=== PATIENT | female | born 1965 | race Caucasian/White ===

== ENCOUNTER 2025-01-13 09:07 | Outpatient (CLI) | payer OTHER, SELFPAY ==
--- NOTE | 2025-01-13 09:15 | MR_ITS ---
[address] [address] Phone:?[phone] Fax:?[phone] Referring Physician Information: Bill Kruger M.D. [id number] [facility] [address] Phone:?[phone] Fax:?[phone] Patient:Rick Duarte D.O.B:?1965 Sex:?Female Phone:?[phone] [facility] MRN:?[id number] Exam Date:?01/13/2025 EXAM: MRI EXAMINATION OF THE RIGHT KNEE CLINICAL INFORMATION: Right knee pain. No history of surgery to this area. Concern for lateral meniscus tear. TECHNICAL INFORMATION: Axial PD and T2 fat saturation. Sagittal PD and T2 fat saturation. Coronal PD, T2 and STIR images acquired. Correlation is made with a prior exam dated October 20, 2008. INTERPRETATION: Bones: Few subchondral cystic changes involving the patella. No occult fracture/stress reaction. No evidence for AVN. No other abnormal bone marrow edema pattern is identified. Ligaments and tendons: The medial collateral ligament is intact, without acute sprain or tear. The iliotibial band, fibular collateral ligament, biceps femoris tendon and popliteus tendon all are intact. The anterior cruciate ligament is intact without acute sprain or tear. The posterior cruciate ligament is intact. Extensor Mechanism: The patellar and quadriceps tendons are intact. The medial and lateral retinacula are intact. Knee Joint: There is a tiny knee joint effusion. Small popliteal cyst. There is no discrete loose body seen within the joint. Medial Compartment: Poorly defined abnormal horizontal signal with areas appearing to extend as tear involving the posterior horn medial meniscus. No displaced flap fragment or parameniscal cyst. There is an 8 x 5 cm segment of spurring of the subchondral bone with marked overlying chondral thinning situated posterior to the mid surface of the medial femoral condyle. No other significant changes of chondromalacia. Lateral Compartment: There is a shallow appearance of tear involving the inner portion of the body of the lateral meniscus. Slight thickened and irregular abnormal signal with areas extending as tearing throughout the anterior horn of the meniscus. There is additional tearing and fraying of the posterior root insertion. No displaced flap fragment or parameniscal cyst. There is a 1.6 x 0.7 cm segment of grade III chondromalacia involving the posterior weightbearing surface of the lateral femoral condyle. Grade II and III chondromalacia involves the tibial plateau. Patellofemoral articulation: Chondromalacia with broad full-thickness cartilage loss of the midline patella and lateral facet. Grade II and III chondromalacia along the periphery of the lateral trochlear groove. CONCLUSION:?The image quality is somewhat degraded secondary to the patient's body habitus. 1. Shallow tear involves the inner portion of the body of the lateral meniscus. Slightly thickened and irregular abnormal signal with areas extending as tearing through the anterior horn. Tearing and fraying of the posterior root insertion. 2. Lateral compartment chondromalacia includes a moderate-sized segment of grade III involvement of the femoral condyle. 3. Poorly defined abnormal horizontal signal appearing to extend as tear involving the posterior horn medial meniscus. There is a small segment of spurring of the subchondral bone with marked chondral thinning of the medial femoral condyle. 4. Patellofemoral chondromalacia includes broad full-thickness loss along the midline patella and lateral facet. 5. The cruciate ligaments are intact. No other residua of a ligament injury involving the knee. KES Electronically signed on 01/14/2025 7:23:00 AM by Dago Davenport M.D.
== END 2025-01-13 09:08 | disposition home or self-care (01) ==
LOC: MRI 09:08
PROVIDERS: PCP Nurse Practitioner Family; Visit Provider Orthopaedic Surgery
DX: M25.561 Pain in right knee (principal); S83.281A Other tear of lateral meniscus, current injury, right knee, initial encounter; M94.261 Chondromalacia, right knee; M22.41 Chondromalacia patellae, right knee
CPT/HCPCS: 73721

== ENCOUNTER 2025-02-12 06:26 | Day surgery (SDC) | payer OTHER, SELFPAY ==
[2025-02-12] VITALS (11 sets, daily range): BP systolic 106–150; BP diastolic 46–70; PULSE 64–82; RESP 12–18; TEMP 36.2–36.6; O2SAT 94–99; BMI 42.0
[2025-02-12] MEDS: LACTATED RINGERS 1000 ML 1,000 ML 100 ML IV ×2 (06:30→09:05)
[2025-02-12] MEDS: SODIUM CHLORIDE 0.9 % (FLUSH) 10 ML SYRINGE IVF (06:48)
[2025-02-12] MEDS: CEFAZOLIN 1 GM inj IVP (08:26)
--- NOTE | 2025-02-12 08:37 | SUR.OPER ---
PATIENT QUESTIONS ANSWERED SATISFACTORILY PREOPERATIVELY.? PATIENT BROUGHT TO OR #3 PER CART.? Patient positioned supine on OR #3 bed.? The perioperative?team supported arms bilaterally on arm boards.? Final approval of positioning by surgeon.? CONTINUOUS IRRIGATION OF THE RIGHT KNEE DURING THE PROCEDURE WITH NACL.
[2025-02-12] MEDS: BUPIVACAINE 0.25% 30 ML INJECTION (08:56)
--- NOTE | 2025-02-12 09:11 | PM.ORPRC ---
Procedure Note Date of procedure: 02/12/25 Procedure: PREOPERATIVE DIAGNOSIS: Right knee lateral meniscus tear POSTOPERATIVE DIAGNOSIS: Right knee lateral meniscus tear NAME OF OPERATION: Right knee arthroscopic partial lateral meniscectomy, tricompartmental chondroplasty SURGEON: Bill Kruger MD HOME WEATHERIZING WORKER: HUGH Aguilar ANESTHESIA: Spinal ESTIMATED BLOOD LOSS: 0 mL COMPLICATIONS: None SPECIMENS: None DRAINS: None PREOPERATIVE ANTIBIOTICS: Ancef 3 gram INDICATIONS: The patient is a 59-year-old with a history of right knee lateral pain. MRI scan is consistent with a lateral meniscus tear. Despite appropriate nonoperative management, including activity modification, antiinflammatories, [id number] pain medication, bracing, physical therapy, and injections they continue to have pain and disability. Operative intervention was offered. The risks, benefits and expected outcomes were discussed in detail. These included but were not limited to: Infection, bleeding, injury to blood vessel or nerve, venous thromboembolism. All questions were answered to their satisfaction. PROCEDURE: Spinal anesthesia was administered. The patient was placed supine on the operating room table. The right lower extremity was prepped and draped in the usual sterile fashion. The limb was exsanguinated with the Colin bandage. The pneumatic tourniquet was inflated to 300 mmHg. A standard anterolateral portal was established. The arthroscope was introduced. The working portal was established anteromedially. Diagnostic arthroscopy was performed with findings as follows: The suprapatellar pouch is normal. Articular surface on the patella shows diffuse grade 2/3 change. Articular surface on the trochlea shows diffuse grade 2/3 change. The medial gutter is normal. The medial compartment shows diffuse grade 3 change on the medial femoral condyle, grade 2 change on the medial tibial plateau. The medial meniscus is normal. The notch shows the ACL to be intact. The lateral compartment shows focal grade 3 change on the lateral femoral condyle, a small patch of grade 4 private branch exchange operator the far medial aspect of the lateral tibial plateau. The lateral meniscus has degenerative tearing of the anterior horn, at the anterior tibial attachment, with longitudinal splitting. There is additional complex degenerative tearing of the posterior horn, just off the posterior tibial attachment. The lateral gutter is normal. The anterior tibial attachment of the lateral meniscus was debrided with the shaver. Care was taken not to detach it from the tibia. Likewise, the undersurface of the posterior horn of the lateral meniscus was debrided with the shaver. The root was aggressively probed and was felt to be intact. Unstable chondral flaps on patella, trochlea, medial femoral condyle, lateral femoral condyle and lateral tibial plateau were debrided with the shaver, taken to a stable base. Arthroscopic instruments were removed, the portal sites were Steri-Stripped closed, the knee was infiltrated with 30 mL of 0.25% Marcaine without epinephrine. A dry dressing was applied, the tourniquet was released. Sponge and needle counts were correct x 2. The patient tolerated the procedure well. There were no apparent complications. They were carefully transferred to the hospital bed and taken to the postanesthesia care unit in satisfactory condition. PLAN: The patient will be discharged to home. They may weightbear as tolerates. Range of motion will be unrestricted. They will follow up in the office next week for a wound check.
--- NOTE | 2025-02-12 09:19 | P.ANES_ITS ---
Anesthesia Charges Start Date/Time Anesthesia Start Date: 02/12/25 Anesthesia Start Time: 07:47 Stop Date/Time Anesthesia Stop Date: 02/12/25 Anesthesia Stop Time: 09:14 Coding CPT Codes CPT Codes: ANESTH KNEE JOINT SURGERY - 72420 ([id number]) P3 - PATIENT W/SEVERE SYS DISEASE, QK - ANESTHESIOLOGIST 2-4 CNCRNT ANES PROC, QX - OFFC SPEC SVC W/ MD MED DIRECTION
--- NOTE | 2025-02-12 09:19 | W.ANESCHARGE ---
Anesthesia Charges Start Date/Time Anesthesia Start Date: 02/12/25 Anesthesia Start Time: 07:47 Stop Date/Time Anesthesia Stop Date: 02/12/25 Anesthesia Stop Time: 09:14 Coding CPT Codes CPT Codes: ANESTH KNEE JOINT SURGERY - 49844 ([id number]) P3 - PATIENT W/SEVERE SYS DISEASE, QK - EYEWEAR CONSULTANT 2-4 CNCRNT ANES PROC, QX - SKIP OPERATOR SVC W/ MD MED DIRECTION
--- NOTE | 2025-02-12 09:42 | SUR.PHASEI ---
patient met discharge criteria per anesthesia
--- NOTE | 2025-02-12 09:45 | P.ANES_ITS ---
Anesthesia Charges Start Date/Time Anesthesia Start Date: 02/12/25 Anesthesia Start Time: 07:47 Stop Date/Time Anesthesia Stop Date: 02/12/25 Anesthesia Stop Time: 09:14 Coding CPT Codes CPT Codes: ANESTH KNEE JOINT SURGERY - 07215 ([id number]) QK - MUD TANK OPERATOR 2-4 CNCRNT ANES PROC, QX - GRAILS WEB APPLICATION DEVELOPER SVC W/ MD MED DIRECTION, P3 - PATIENT W/SEVERE SYS DISEASE
--- NOTE | 2025-02-12 09:45 | W.ANESCHARGE ---
Anesthesia Charges Start Date/Time Anesthesia Start Date: 02/12/25 Anesthesia Start Time: 07:47 Stop Date/Time Anesthesia Stop Date: 02/12/25 Anesthesia Stop Time: 09:14 Coding CPT Codes CPT Codes: ANESTH KNEE JOINT SURGERY - 07925 ([id number]) QK - FABRICATION OPERATOR 2-4 CNCRNT ANES PROC, QX - TAKE OFF MAN SVC W/ MD MED DIRECTION, P3 - PATIENT W/SEVERE SYS DISEASE
== END 2025-02-12 10:42 | disposition home or self-care (01) ==
LOC: OR 06:26
PROVIDERS: PCP Nurse Practitioner Family; Visit Provider Orthopaedic Surgery
PROC: (CPT 29882; principal; 2025-02-12 07:45)
DX: S83.281A Other tear of lateral meniscus, current injury, right knee, initial encounter (principal)
CPT/HCPCS: 29881; 01400; J0665; J0690; J1100; J2250; J2405; J2704; J3010; J3490; J7120